=== PATIENT | female | born 1995 | race Caucasian/White ===

== ENCOUNTER → 2024-02-23 | Outpatient (CLI) | payer OTHER ==
[2024-02-23 12:15] LABS: Glucose 3 Hour, Gest 71 mg/dL
== END | disposition home or self-care (01) ==
LOC: LABWHC1 07:38
PROVIDERS: ATTEND Obstetrics & Gynecology
DX: O00-O9A Pregnancy, childbirth and the puerperium (principal)
CPT/HCPCS: 36415; 82951; 82952